=== PATIENT | female | born 2000 | race Caucasian/White ===

== ENCOUNTER 2022-11-06 22:06 | Emergency (ER) | payer OTHER ==
[~2022-11-06] VITALS: Ht 160 cm; Wt 62.8 kg
[2022-11-06] MEDS ORDERED: predniSONE 20 MG TAB PO ONE (22:30)
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
[2022-11-06] MEDS ORDERED: EPIN0.3P3 IJ (23:01)
[2022-11-06 23:14] VITALS: BP 115/73
== END 2022-11-06 23:14 | disposition home or self-care (01) ==
LOC: ER 22:08
DX: T78.40XA Allergy, unspecified, initial encounter (principal)
CPT/HCPCS: 99283